=== PATIENT | male | born 1940 | race Caucasian/White ===

== ENCOUNTER 2022-01-17 12:04 | Outpatient (CLI) | payer MEDICARE, BC | END 2022-01-17 12:05 | disposition home or self-care (01) | LOC: CSHSPEC 12:04 | PROVIDERS: ATTEND Anesthesiology Pain Medicine | DX: M47.816 Spondylosis without myelopathy or radiculopathy, lumbar region (principal); M48.062 Spinal stenosis, lumbar region with neurogenic claudication; Z95.0 Presence of cardiac pacemaker; M41.86 Other forms of scoliosis, lumbar region | CPT/HCPCS: 71045; 72148 ==